=== PATIENT | female | born 1990 | race Hispanic/Latino ===

== ENCOUNTER 2021-06-25 20:35 | Emergency (ER) | payer BC ==
[2021-06-25 21:21] LABS: #Eosinphils 0.2 10x3/uL (0.0-0.5); #Monocytes 0.6 10x3/uL (0.0-1.1); #Neutrophils 7.3 10x3/uL (1.5-8.4); %Basophils 0.3 % (0.0-2.0); %Eosinophils 1.4 % (0.0-6.0); %Monocytes 4.7 % (0.0-10.0); %Neutrophils 61.3 % (40.0-75.0); Hemoglobin 13.4 g/dL (12.0-15.5); Mean Corpuscular HGB CONC 33.1 g/dL (32.0-36.0); Mean Corpuscular Hemoglobin 28.8 pg (27.0-33.0); Mean Corpuscular Volume 87.1 fl (81.6-98.3); Mean Platelet Volume 10.7 fl (7.4-10.4); Platelet Count 224 10x3/uL (150-450); RBC Distribution Width 13.2 % (11.5-14.5); Red Blood Cell (RBC) Count 4.65 10x6/uL (3.90-5.03); White Blood Cell (WBC) Count 11.9 10x3/uL (3.5-10.5)
== END 2021-06-26 00:34 | disposition home or self-care (01) ==
LOC: CSHERS 20:35
DX: O20.0 Threatened abortion (principal); Z3A.09 9 weeks gestation of pregnancy
CPT/HCPCS: 36415; 76856; 84702; 85025; 86900; 86901

== ENCOUNTER 2022-02-06 09:29 | Outpatient (CLI) | payer BC ==
[2022-02-06 11:07] LABS: Hemoglobin 11.5 g/dL (12.0-15.5); Mean Corpuscular Hemoglobin 26.7 pg (27.0-33.0); Mean Platelet Volume 11.8 fl (7.4-10.4); Platelet Count 207 10x3/uL (150-450); RBC Distribution Width 13.9 % (11.5-14.5); Red Blood Cell (RBC) Count 4.31 10x6/uL (3.90-5.03); White Blood Cell (WBC) Count 9.6 10x3/uL (3.5-10.5)
[2022-02-06 11:41] LABS: HBSAg Index 0.19 S/CO (0-0.99); Hep B Surf Ag Non-Reactive S/CO (NonReactive); Syphilis Antibody Nonreactive (Nonreactive); Syphilis Antibody Index 0.06 S/CO (<1.00 Non-Reactive)
== END 2022-02-06 09:30 | disposition home or self-care (01) ==
LOC: CSHLAB 09:29
PROVIDERS: ATTEND Obstetrics & Gynecology
DX: Z01.812 Encounter for preprocedural laboratory examination (principal); Z20.822 Contact with and (suspected) exposure to COVID-19
CPT/HCPCS: 85027; 86780; 87340; U0003; U0005

== ENCOUNTER 2022-02-11 06:31 | Inpatient (IN) | payer BC ==
[2022-02-11] MEDS ORDERED: CEFAZOLIN 2 GM VIAL ONE (07:36)
[2022-02-11] MEDS ORDERED: Famotidine/PF 20 mg/2ml Vial ONE (07:36)
[2022-02-11] MEDS ORDERED: CEFAZOLIN 2 GM in Sodium Chloride 0.9% 100 ML IVPB SCH (07:52)
[2022-02-11] MEDS ORDERED: Ondansetron PF 4 MG/2 ML Vial IVP PRN ×2 (07:52→11:52)
[2022-02-11] MEDS ORDERED: Bicitra 30 ML UDCUP PO PRN (07:52)
[2022-02-11] MEDS ORDERED: Promethazine HCl 25 MG/ML VIAL IM PRN ×2 (07:52→11:52)
[2022-02-11] MEDS ORDERED: Famotidine/PF 20 mg/2ml Vial SLOW IVP PRN (07:52)
[2022-02-11] MEDS ORDERED: hydrALAZINE 20 MG/ML VIAL SLOW IVP PRN (07:52)
[2022-02-11 07:56] VITALS: BMI 39.3
[2022-02-11] MEDS: Lactated Ringer's 1,000 ML IV SCH (09:05)
[2022-02-11] MEDS ORDERED: Fentanyl 100 MCG/2 ML VIAL ONE (10:29)
[2022-02-11] MEDS ORDERED: Morphine PF 10 MG/10 ML VIAL ONE (10:29)
[2022-02-11] MEDS ORDERED: Oxytocin 10 UNITS/ML VIAL ONE ×2 (10:55→11:03)
[2022-02-11] MEDS ORDERED: PHENYLEPHRINE-NS 100 MCG/ML 10 ML SYRINGE ONE (10:56)
[2022-02-11] MEDS ORDERED: Phenylephrine 40 MG/NS 250 ML 250 ML ONE (10:56)
[2022-02-11] MEDS ORDERED: Ketorolac Tromethamine 30 MG/ML VIAL ONE (10:56)
[2022-02-11] MEDS ORDERED: Meperidine HCl/PF 25 MG/ML VIAL SLOW IVP PRN (11:52)
[2022-02-11] MEDS ORDERED: diphenhydrAMINE 50 MG/ML VIAL IVP PRN (11:52)
[2022-02-11] MEDS ORDERED: Promethazine HCl 25 MG SUPP PR PRN (11:52)
[2022-02-11] MEDS ORDERED: Naloxone HCl 0.4 mg/ml Vial IV PRN (11:52)
[2022-02-11] MEDS ORDERED: Moisturizing Cream (Eucerin) 113 GM JAR TOP PRN (11:52)
[2022-02-11] MEDS ORDERED: Fentanyl 100 MCG/2 ML VIAL SLOW IVP PRN (11:52)
[2022-02-11] MEDS ORDERED: Naloxone HCl 0.4 mg/ml Vial IVP PRN ×2 (11:52)
[2022-02-11] MEDS ORDERED: Ondansetron HCl/PF 4 MG/2 ML Vial IVP PRN (11:52)
[2022-02-11] MEDS ORDERED: Communication Order-Pharmacy FS SCH (12:00)
[2022-02-11] MEDS ORDERED: Acetaminophen 325 MG TAB PO PRN (12:03)
[2022-02-11] MEDS ORDERED: Lanolin Ointment 7 GM TUBE TOP PRN (12:03)
[2022-02-11] MEDS ORDERED: NS w/ Oxytocin 30 units 500 ML IV SCH (12:15)
[2022-02-11] MEDS ORDERED: Ketorolac Tromethamine 30 MG/ML VIAL IVP PRN (18:00)
[2022-02-11] MEDS ORDERED: Ketorolac Tromethamine 30 MG/ML VIAL IVP SCH (18:00)
[2022-02-12] MEDS ORDERED: HYDROcodone/Acetaminophen 5/325 mg Tablet PO PRN (00:01)
[2022-02-12] MEDS: Lactated Ringer's 1,000 ML IV SCH ×3 (01:32→14:26)
[2022-02-12 05:02] LABS: Hemoglobin 9.2 g/dL (12.0-15.5); Mean Corpuscular HGB CONC 31.8 g/dL (32.0-36.0); Mean Corpuscular Hemoglobin 26.7 pg (27.0-33.0); Mean Corpuscular Volume 83.8 fl (81.6-98.3); Mean Platelet Volume 11.8 fl (7.4-10.4); Platelet Count 150 10x3/uL (150-450); RBC Distribution Width 14.2 % (11.5-14.5); Red Blood Cell (RBC) Count 3.45 10x6/uL (3.90-5.03); White Blood Cell (WBC) Count 8.4 10x3/uL (3.5-10.5)
[2022-02-12] MEDS: Prenatal Vitamin 1 TAB PO SCH (08:45)
[2022-02-12] MEDS: HYDROcodone/Acetaminophen 5/325 mg Tablet PO PRN ×3 (11:38→21:21)
[2022-02-12] MEDS ORDERED: Boostrix 0.5 ML (Tdap) VIAL (>/=7 yrs of age) IM ONE (12:03)
[2022-02-12] MEDS ORDERED: Ibuprofen 800 MG TAB PO SCH (15:30)
[2022-02-12] MEDS: Ibuprofen 800 MG TAB PO SCH (21:20)
[2022-02-13] MEDS: Ibuprofen 800 MG TAB PO SCH (04:40)
[2022-02-13] MEDS: HYDROcodone/Acetaminophen 5/325 mg Tablet PO PRN ×3 (04:40→12:45)
[2022-02-13] MEDS: Lactated Ringer's 1,000 ML IV SCH ×2 (07:18→08:47)
[2022-02-13 08:54] VITALS: BP 106/59; TEMP 98.1
[2022-02-13] MEDS: Prenatal Vitamin 1 TAB PO SCH (09:03)
[2022-02-13] MEDS ORDERED: Simethicone Chewable 80 MG TAB PO PRN (09:19)
== END 2022-02-13 13:45 | disposition home or self-care (01) | DRG 788 ==
LOC: CSHLD 06:31 → CSHPED 15:09
PROVIDERS: ADMIT Obstetrics & Gynecology; ATTEND Obstetrics & Gynecology
PROC: 10D00Z1 Extraction of Products of Conception, Low, Open Approach (ICD-10-PCS; principal; 2022-02-11)
DX: O34.211 Maternal care for low transverse scar from previous cesarean delivery (principal); E66.9 Obesity, unspecified; O99.214 Obesity complicating childbirth; Z3A.39 39 weeks gestation of pregnancy; Z37.0 Single live birth; O24.424 Gestational diabetes mellitus in childbirth, insulin controlled; Z79.4 Long term (current) use of insulin; O36.63X0 Maternal care for excessive fetal growth, third trimester, not applicable or unspecified; O99.892 Other specified diseases and conditions complicating childbirth; N73.6 Female pelvic peritoneal adhesions (postinfective); O32.8XX0 Maternal care for other malpresentation of fetus, not applicable or unspecified; O69.81X0 Labor and delivery complicated by cord around neck, without compression, not applicable or unspecified; Z88.8 Allergy status to other drugs, medicaments and biological substances
CPT/HCPCS: 36415; 36416; 51702; 85027; 86850; 86900; 86901; 88307; J0690; J1885; J2274; J2590; J3010; J7120; S0028